=== PATIENT | male | born 1960 | race Hispanic/Latino ===

== ENCOUNTER → 2021-01-27 | Outpatient (CLI) | payer OTHER | END | disposition home or self-care (01) | LOC: RAH 13:35 | PROVIDERS: ATTEND Urology | DX: K57.30 Diverticulosis of large intestine without perforation or abscess without bleeding (principal); N40.0 Benign prostatic hyperplasia without lower urinary tract symptoms; N20.0 Calculus of kidney | CPT/HCPCS: 74176 ==

== ENCOUNTER → 2021-06-16 | Outpatient (CLI) | payer OTHER | END | disposition home or self-care (01) | LOC: RAH 10:20 | PROVIDERS: ATTEND Urology | DX: N20.0 Calculus of kidney (principal) | CPT/HCPCS: 74018; 76100 ==

== ENCOUNTER → 2022-01-24 | Outpatient (CLI) | payer OTHER | END | disposition home or self-care (01) | LOC: RAH 13:16 | PROVIDERS: ATTEND Urology | DX: N20.0 Calculus of kidney (principal) | CPT/HCPCS: 74018; 76100 ==

== ENCOUNTER → 2022-04-04 | Outpatient (CLI) | payer OTHER | END | disposition home or self-care (01) | LOC: RAH 08:32 | PROVIDERS: ATTEND Urology | DX: N20.0 Calculus of kidney (principal); M47.815 Spondylosis without myelopathy or radiculopathy, thoracolumbar region | CPT/HCPCS: 74018; 76100 ==

== ENCOUNTER → 2022-08-16 | Outpatient (CLI) | payer OTHER | END | disposition home or self-care (01) | LOC: RAH 09:27 | PROVIDERS: ATTEND Urology | DX: N20.0 Calculus of kidney (principal) | CPT/HCPCS: 74018; 76100 ==

== ENCOUNTER → 2023-01-24 | Outpatient (CLI) | payer OTHER | END | disposition home or self-care (01) | LOC: RAH 08:27 | PROVIDERS: ATTEND Urology | DX: N20.0 Calculus of kidney (principal); N28.89 Other specified disorders of kidney and ureter | CPT/HCPCS: 74018; 76100 ==

== ENCOUNTER → 2024-03-26 | Outpatient (CLI) | payer OTHER | END | disposition home or self-care (01) | LOC: RAH 13:11 | PROVIDERS: ATTEND Urology | DX: N20.0 Calculus of kidney (principal) | CPT/HCPCS: 74018; 76100 ==

== ENCOUNTER → 2024-05-07 | Outpatient (CLI) | payer OTHER | END | disposition home or self-care (01) | LOC: RAH 09:22 | PROVIDERS: ATTEND Internal Medicine Cardiovascular Disease | DX: Z13.6 Encounter for screening for cardiovascular disorders (principal) | CPT/HCPCS: 75571 ==

== ENCOUNTER 2024-06-04 09:17 | Observation (INO) | payer OTHER ==
[2024-05-31 14:21] VITALS: BP 124/69; PULSE 63; RESP 18
[2024-05-31 14:23] LABS: BASOPHILS # (AUTO) 0.03 K/uL (0.00-0.20); BASOPHILS % (AUTO) 0.4 % (0.0-5.0); EOSINOPHILS # (AUTO) 0.49 K/uL (0.00-0.70); EOSINOPHILS % (AUTO) 6.8 % (0.0-8.0); HEMATOCRIT 46.3 % (42-54); IMMATURE GRANULOCYTE ABSOLUTE 0.02 K/uL (0-1); LYMPHOCYTES # (AUTO) 1.5 K/uL (1.0-4.8); MEAN CORPUSCULAR HEMOGLOBIN 31.1 pg (27.0-33.0); MEAN CORPUSCULAR HGB CONC 33.7 g/dL (32.0-36.0); MEAN CORPUSCULAR VOLUME 92.2 fL (79-99); MONOCYTES # (AUTO) 0.5 K/uL (0.1-1.0); MONOCYTES % (AUTO) 6.8 % (3.0-13.0); NEUTROPHILS # (AUTO) 4.8 K/uL (1.8-7.7); NEUTROPHILS % (AUTO) 65.7 % (40.0-77.0); PLATELET COUNT (AUTO) 206 K/uL (130-400); RED BLOOD CELL COUNT(AUTO) 5.02 MIL/uL (4.50-6.20); RED CELL DISTRIBUTION WIDTH 12.4 % (11.0-15.5); WHITE BLOOD COUNT (AUTO) 7.3 K/uL (4.8-10.8)
[2024-05-31 14:39] LABS: CREATININE 1.1 mg/dL (0.5-1.3); POTASSIUM 4.2 mmol/L (3.5-5.1)
[~2024-06-04] VITALS: Ht 167.6 cm; Wt 85.0 kg
[2024-06-04] VITALS (30 sets, daily range): BP systolic 109–129; BP diastolic 53–80; PULSE 65–96; RESP 15–21; O2SAT 95
[~2024-06-04 09:17] MED LIST: COQ10 PO; CRANBERRY PO; FAMO40TA7 PO; FISH OIL PO; LYSINE PO; MORINGA PO; MVI PO; OMEP40CA21 PO; SIMV-43 PO; TAMS-1 PO
[2024-06-04] MEDS ORDERED: LIDOCAINE PF 100MG/5ML (2%) SYRINGE 5ML ONE (10:28)
[2024-06-04] MEDS ORDERED: PROPOFOL 10 MG/ML 20ML VIAL IV ONE (10:28)
[2024-06-04] MEDS ORDERED: MIDAZOLAM HCL 1 MG/ML 2ML VIAL ONE (10:29)
[2024-06-04] MEDS ORDERED: FENTANYL CITRATE PF 50 MCG/1 ML 2ML VIAL ONE ×2 (10:29→12:16)
[2024-06-04] MEDS ORDERED: ROCURONIUM BROMIDE 10MG/1ML 5ML VL ONE ×2 (10:29→13:43)
[2024-06-04] MEDS: CEFAZOLIN SODIUM 2 GM VIAL ONE (12:00)
[2024-06-04] MEDS: BUPIVACAINE/PF 0.25% 30ML VIAL IJ ONE (12:02)
[2024-06-04] MEDS ORDERED: GLYCOPYRROLATE 0.2 MG/ML 5 ML VIAL ONE (12:15)
[2024-06-04] MEDS ORDERED: ONDANSETRON 4MG INJ ONE (12:15)
[2024-06-04] MEDS ORDERED: NEOSTIGMINE METHYLSULFATE 1MG/ML IV ONE (12:15)
[2024-06-04] MEDS ORDERED: DEXAMETHASONE SOD PHOSPHATE 4 MG/ML 1ML VIAL ONE (12:15)
[2024-06-04] MEDS ORDERED: PROCHLORPERAZINE 10MG/2ML INJ IV PRN (14:30)
[2024-06-04] MEDS ORDERED: HYDROMORPHONE 0.5 MG SYG (0.5MG/0.5ML) IVP PRN (14:30)
[2024-06-04] MEDS ORDERED: ONDANSETRON 4MG INJ IVP PRN (14:30)
[2024-06-04] MEDS: KETOROLAC 15MG/ML VIAL (15MG/ML) IV SCH (15:00)
[2024-06-04] MEDS: MEPERIDINE-PF 25 MG/ML SYG ONE ×2 (15:11→15:24)
[2024-06-04] MEDS: LACTATED RINGERS 1000ML 1,000 ML IV SCH (15:30)
[2024-06-04] MEDS: ACETAMINOPHEN 1,000 MG/100 ML VIAL IV ONE (19:00)
[2024-06-04] MEDS: HYDROMORPHONE 1 MG INJ ONE (19:00)
[2024-06-04] MEDS: PHENYTOIN 100MG (50MG/ML) INJ 100 MG/2 ML ML IV ONE (19:00)
[2024-06-04] MEDS: LACTATED RINGERS 1000ML 1,000 ML IV ONE (19:00)
[2024-06-04] MEDS: TAMSULOSIN HCL 0.4 MG CAP.ER.24H PO SCH (21:21)
[2024-06-04] MEDS: FAMOTIDINE 20MG TAB PO SCH (21:21)
[2024-06-05] VITALS: BP 112/64; PULSE 74; RESP 18
[2024-06-05] MEDS: HYDROCODONE/ACETAMINOPHEN 7.5/325 MG 15 ML UDCUP PO PRN (06:47)
[2024-06-05 07:40] VITALS: BP 135/85; PULSE 60; RESP 19
[2024-06-05 08:00] VITALS: O2SAT 95
[2024-06-05] MEDS: SIMETHICONE 80 MG TAB.CHEW PO SCH (11:07)
[2024-06-05] MEDS: ENOXAPARIN SODIUM 30 MG/0.3 ML SQ SCH (11:08)
[2024-06-05 12:00] VITALS: BP 131/74; PULSE 63; RESP 18
[2024-06-05 13:05] VITALS: O2SAT 95
== END 2024-06-05 17:00 | disposition home or self-care (01) ==
LOC: DAH 09:17 → DAHIP 09:18 → DAH 09:18 → 3BH 17:15
PROVIDERS: ADMIT Surgery; ATTEND Surgery
DX: K44.9 Diaphragmatic hernia without obstruction or gangrene (principal); K21.9 Gastro-esophageal reflux disease without esophagitis; K22.2 Esophageal obstruction; R33.9 Retention of urine, unspecified; E78.5 Hyperlipidemia, unspecified; Z85.46 Personal history of malignant neoplasm of prostate; Z79.899 Other long term (current) drug therapy
CPT/HCPCS: 43280; S2900; 36415; 43235; 80048; 85025; 86850; 86900; 86901; 93005; 96372; 96374; 96376; A4606; G0378; J1100; J1165; J1170; J1650; J1885; J2001; J2175; J2250; J2405; J2704; J2710; J3010; J3490; J7120; A4213; A4215; A4216; A4221; A4222; A4223; A4600; A4663; A4930; A6260; C1781; G0168; J0665; J0690

== ENCOUNTER → 2024-09-25 | Outpatient (CLI) | payer OTHER ==
[~2024-09-25] MED LIST changes: -OMEP40CA21 PO
--- NOTE | 2024-09-25 12:28 | HMCIMG ---
ABD 1VW REASON: CALCULUS OF KIDNEY FINDINGS: Single image of the abdomen was obtained. Bowel gas pattern is normal. Bones and soft tissues appear unremarkable. There are no visible stones. There are no abnormal calcifications. There is no evidence of foreign body. IMPRESSION: 1. Negative single view of the abdomen.
--- NOTE | 2024-09-25 12:29 | HMCIMG ---
TOMOGRAM REASON: CALCULUS OF KIDNEY COMPARISON: 03/26/2024 TECHNIQUE: A tomographic images are obtained through the kidneys. FINDINGS: There are normal-appearing kidneys. There are no visible stones. The small stone lower pole calyx left kidney seen on previous exam is no longer visualized. IMPRESSION: 1. Normal bilateral renal tomograms.
== END | disposition home or self-care (01) ==
LOC: RAH 09:37
PROVIDERS: ATTEND Urology
DX: N20.0 Calculus of kidney (principal)
CPT/HCPCS: 74018; 76100

== ENCOUNTER → 2025-04-08 | Outpatient (CLI) | payer OTHER ==
[~2025-04-08] MED LIST changes: -TAMS-1 PO; +TAMS-55 PO
--- NOTE | 2025-04-08 10:55 | HMCIMG ---
Exam Type: abdomen supine tomograms and KUB Tomogram planes done at 8 through 13 cm. Clinical Information: CALCULUS OF KIDNEY Comparison: None. Findings: There are no radiopacities to suggest calculous disease. The limited visualization of the rest of the abdomen structures is unremarkable. IMPRESSION: Normal tomogram exam. No calculi identified.
== END | disposition home or self-care (01) ==
LOC: RAH 09:11
PROVIDERS: ATTEND Urology
DX: N20.0 Calculus of kidney (principal)
CPT/HCPCS: 74018; 76100

== ENCOUNTER → 2025-09-29 | Outpatient (CLI) | payer OTHER ==
--- NOTE | 2025-09-30 02:50 | HMCIMG ---
STUDY: X-RAY OF THE ABDOMEN, 1 VIEW HISTORY: Known renal calculus; evaluation for nephrolithiasis. TECHNIQUE: A frontal view of the abdomen is submitted for interpretation. COMPARISON: None provided. FINDINGS: Bones and joints: The visualized lumbar spine, pelvis, and hip joints demonstrate preserved alignment without acute osseous abnormality. Soft tissues and bowel gas: Mild gaseous distention of bowel loops is noted without radiographic evidence of bowel obstruction or free intraperitoneal air. A few tiny radiopaque densities project over the region of the left renal fossa, which may represent renal calculi versus enteric contents such as fecaliths. No abnormal calcifications are otherwise identified in the expected renal, ureteric, or vesical regions. IMPRESSION: * Few tiny radiopaque foci projecting over the left renal fossa, which may represent renal calculi versus overlying enteric contents. * Mild gaseous distention of bowel loops without radiographic evidence of obstruction. * Further evaluation with ultrasound or CT KUB is suggested for more definitive assessment of possible nephrolithiasis. /[place]on[place]
--- NOTE | 2025-09-30 02:51 | HMCIMG ---
STUDY: X-RAY OF THE KIDNEYS (TOMOGRAM), 8 VIEWS HISTORY: Calculus of kidney. TECHNIQUE: Eight tomographic views of the kidneys are submitted for interpretation. COMPARISON: None provided. FINDINGS: Bones and joints: Visualized osseous structures are unremarkable without acute abnormality. Soft tissues: A tiny radiopaque focus measuring approximately 2 mm is seen projecting over the lower calyx of the left kidney, consistent with a small calyceal calculus. No additional definite radiopaque calculus is identified over the right renal area or along the expected course of the ureters. IMPRESSION: * Tiny 2 mm calculus in the lower calyx of the left kidney. * No additional radiopaque urinary tract calculus was identified. /[place]
== END | disposition home or self-care (01) ==
LOC: RAH 10:34
PROVIDERS: ATTEND Urology
DX: N20.0 Calculus of kidney (principal)
CPT/HCPCS: 74018; 76100